=== PATIENT | female | born 1965 | race African-American/Black ===

== ENCOUNTER 2024-03-20 04:48 | Day surgery (SDC) | payer OTHER ==
[2024-03-20] MEDS ORDERED: PHENAZOPYRIDINE HCL 100 MG TABLET (FP) ONE (06:44)
[2024-03-20] MEDS: PHENAZOPYRIDINE HCL 100 MG TABLET (FP) PO ONE (06:48)
[2024-03-20] MEDS ORDERED: ROCURONIUM BROMIDE 50 MG/5 ML SYRINGE ONE ×2 (06:59→08:51)
[2024-03-20] MEDS ORDERED: PROPOFOL 20 ML ONE (06:59)
[2024-03-20] MEDS ORDERED: MIDAZOLAM HCL 2 MG/2 ML SINGLE DOSE VIAL ONE (07:00)
[2024-03-20] MEDS ORDERED: HYDROmorphone HCl 2 MG/ML VIAL ONE (08:05)
[2024-03-20] MEDS: ceFAZolin SODIUM 1 GM VIAL IVPB ONE (08:11)
[2024-03-20] MEDS ORDERED: DEXAMETHASONE SOD PHOSPHATE 4 MG/1 ML VIAL ONE (09:10)
[2024-03-20] MEDS ORDERED: GLYCOPYRROLATE 0.2 MG/1 ML VIAL ONE (09:10)
[2024-03-20] MEDS ORDERED: NEOSTIGMINE METHYLSULFATE 0.5 MG/1 ML - 10 ML MDV ONE (09:10)
[2024-03-20] MEDS ORDERED: ONDANSETRON 4 MG/2 ML VIAL ONE (09:10)
[2024-03-20] MEDS ORDERED: KETOROLAC TROMETHAMINE 30 MG/1 ML VIAL ONE (09:10)
[2024-03-20] MEDS ORDERED: ceFAZolin SODIUM 1 GM VIAL ONE (09:10)
[2024-03-20] MEDS ORDERED: ePHEDrine SULFATE 50 MG/1 ML AMPULE ONE (09:10)
[2024-03-20] MEDS ORDERED: ONDANSETRON 4 MG/2 ML VIAL IVPUSH PRN ×2 (09:52→10:01)
[2024-03-20] MEDS ORDERED: oxyCODONE HCL 5 MG TABLET PO PRN ×2 (10:01)
[2024-03-20] MEDS ORDERED: SIMETHICONE 80 MG TAB.CHEW (FP) PO PRN (10:01)
[2024-03-20] MEDS ORDERED: BISACODYL 5 MG TABLET.DR (FP) PO PRN (10:01)
[2024-03-20] MEDS ORDERED: DOCUSATE SODIUM 100 MG CAPSULE (FP) PO PRN (10:01)
[2024-03-20] MEDS: ACETAMINOPHEN INJECTION 100 ML ONE (10:38)
[2024-03-20] MEDS: ACETAMINOPHEN 1000 MG/100 ML BAG IVPB ONE ×2 (10:38→19:43)
[2024-03-20] MEDS: CEFAZOLIN 2 GM in DEXTROSE 5%-WATER - 100 ML IVPB ONE (11:26)
[2024-03-20] MEDS: ACETAMINOPHEN 1000 MG/100 ML BAG IVPB SCH (16:07)
[2024-03-20] MEDS: IBUPROFEN 800 MG/8 ML IJ IVPB SCH (17:00)
[2024-03-20] MEDS: CEFAZOLIN 1 GM/D5W 1 GM/50 ML BAG IVPB SCH (17:30)
[2024-03-20] MEDS ORDERED: CEFAZOLIN 1 GM/D5W 1 GM/50 ML BAG IVPB SCH (18:20)
[2024-03-20 18:34] VITALS: RESP 18
[2024-03-20 19:39] LABS: HEMATOCRIT 37.2 % (32.4-45.2); HEMOGLOBIN 12.7 GM/dL (10.7-15.3); MCH 28.4 pg (25.7-33.7); MCHC 34.3 g/dl (32.0-36.0); MEAN PLT VOLUME 7.2 fl (7.5-11.1); PLATELET COUNT 269 10^3/uL (134-434); RBC 4.48 M/mm3 (3.60-5.2); RDW 14.4 % (11.6-15.6); WHITE BLOOD COUNT 7.9 K/mm3 (4.0-10.0)
[2024-03-20] MEDS: TRANEXAMIC ACID 1000 MG/10 ML VIAL IVPUSH ONE (19:43)
[2024-03-20] MEDS: LACTATED RINGERS SOLUTION 1,000 ML IV SCH (19:43)
[2024-03-20 20:06] LABS: POTASSIUM 4.4 mmol/L (3.5-5.1)
[2024-03-20 20:08] LABS: BLOOD UREA NITROGEN 13.8 mg/dL (7-18); CALCIUM 8.6 mg/dL (8.5-10.1)
[2024-03-20] MEDS: LACTATED RINGERS SOLUTION 1,000 ML/1,000 ML INFUS.BAG IV SCH (23:49)
[2024-03-21] MEDS: CEFAZOLIN 1 GM/D5W 1 GM/50 ML BAG IVPB SCH (01:18)
[2024-03-21 05:06] VITALS: TEMP 98.5
[2024-03-21 07:23] LABS: HEMATOCRIT 33.1 % (32.4-45.2); HEMOGLOBIN 11.8 GM/dL (10.7-15.3); MCH 29.2 pg (25.7-33.7); MCHC 35.7 g/dl (32.0-36.0); MEAN CELL VOLUME 81.9 fl (80-96); MEAN PLT VOLUME 7.4 fl (7.5-11.1); PLATELET COUNT 234 10^3/uL (134-434); RBC 4.04 M/mm3 (3.60-5.2); RDW 14.8 % (11.6-15.6); WHITE BLOOD COUNT 7.1 K/mm3 (4.0-10.0)
[2024-03-21 08:08] LABS: CALCIUM 8.7 mg/dL (8.5-10.1)
[2024-03-21 08:09] LABS: BLOOD UREA NITROGEN 14.3 mg/dL (7-18)
[2024-03-21 08:12] LABS: CREATININE 0.9 mg/dL (0.55-1.3)
[2024-03-21 09:08] VITALS: BP 127/67; PULSE 64
[2024-03-21] MEDS: HYDROCHLOROTHIAZIDE 12.5 MG CAPSULE (FP) PO SCH (09:27)
[2024-03-21] MEDS: LOSARTAN POTASSIUM 50 MG TABLET PO SCH (09:27)
[2024-03-21] MEDS: amLODIPine BESYLATE 5 MG TABLET (FP) PO SCH (09:28)
[2024-03-21] MEDS: ENOXAPARIN NA (PORCINE) 40 MG/0.4 ML DISP.SYRIN SQ SCH (09:48)
[2024-03-21] MEDS: ACETAMINOPHEN 500 MG TABLET (FP) PO SCH (12:10)
== END 2024-03-21 13:10 | disposition home or self-care (01) ==
LOC: JASUSAT 04:48 → J3W 13:36 → JASUSAT 03-21 13:10
PROVIDERS: ATTEND Obstetrics & Gynecology
PROC: 0UT2FZZ Resection of Bilateral Ovaries, Via Natural or Artificial Opening With Percutaneous Endoscopic Assistance (ICD-10-PCS; 2024-03-20)
PROC: 8E0W4CZ Robotic Assisted Procedure of Trunk Region, Percutaneous Endoscopic Approach (ICD-10-PCS; 2024-03-20)
PROC: 0UT9FZZ Resection of Uterus, Via Natural or Artificial Opening With Percutaneous Endoscopic Assistance (ICD-10-PCS; principal; 2024-03-20 07:30)
PROC: 0UT7FZZ Resection of Bilateral Fallopian Tubes, Via Natural or Artificial Opening With Percutaneous Endoscopic Assistance (ICD-10-PCS; 2024-03-20 07:30)
DX: D25.1 Intramural leiomyoma of uterus (principal); N84.0 Polyp of corpus uteri
CPT/HCPCS: 58554; S2900; 36415; 80048; 85027; 86850; 86900; 86901; 88305-TC; 88307-TC; 94760; J0131